=== PATIENT | female | born 1955 | race Caucasian/White ===

== ENCOUNTER 2017-05-25 18:07 | Inpatient (IN) | payer MEDICAID ==
[~2017-05-25] VITALS: Ht 160 cm; Wt 118.4 kg
[~2017-05-25 18:07] MED LIST: ASPI-1009 PO; CLOP75TA35 PO; FURO40TA4 PO; IMD30T PO; MARIJAUNA; NICO-62 TD; NITR0.4T51 SL; NOR5T PO; POTA8CAP9 PO; SIMV10TA2 PO
[2017-05-25 18:53] LABS: BASOPHILS # (AUTO) 0.1 X10'3 (0-0.2); BASOPHILS % (AUTO) 0.6 % (0-1); EOSINOPHILS # (AUTO) 0.2 X10'3 (0-0.9); EOSINOPHILS % (AUTO) 1.9 % (0-6); HEMATOCRIT 42.1 % (35.0-45.0); HEMOGLOBIN 14.1 g/dl (12.0-16.0); LYMPHOCYTES # (AUTO) 4.4 X10'3 (1.1-4.8); LYMPHOCYTES % (AUTO) 47.6 % (21-51); MEAN CORPUSCULAR HEMOGLOBIN 26.5 PG (27.0-31.0); MEAN CORPUSCULAR HGB CONC 33.6 % (33.0-36.5); MEAN CORPUSCULAR VOLUME 78.8 FL (78-98); MEAN PLATELET VOLUME 8.5 FL (7.4-10.4); MONOCYTES # (AUTO) 0.7 X10'3 (0-0.9); MONOCYTES % (AUTO) 7.7 % (2-12); NEUTROPHILS # (AUTO) 3.9 X10'3 (1.8-7.7); NEUTROPHILS % (AUTO) 42.2 % (42-75); PLATELET COUNT 290 X10'3 (140-440); RED BLOOD COUNT 5.34 X10'6 (4.20-5.60); RED CELL DISTRIBUTION WIDTH 15.1 % (11.5-14.5); WHITE BLOOD COUNT 9.2 X10'3 (4.5-11.0)
[2017-05-25 19:02] LABS: PARTIAL THROMBOPLASTIN TIME 26 SECONDS (22-32); PROTHROMBIN TIME 10.7 SECONDS (9.0-12.0)
[2017-05-25] MEDS ORDERED: albuterol 2.5 MG/3 ML nebule NEB ONE (19:05)
[2017-05-25 19:07] LABS: ALANINE AMINOTRANSFERASE 42 U/L (12-78); ALBUMIN 3.8 G/DL (3.4-5.0); ALBUMIN/GLOBULIN RATIO 0.8 (1.1-1.5); ALKALINE PHOSPHATASE 65 IU/L (46-116); ANION GAP 11 (8-16); ASPARTATE AMINO TRANSFERASE 31 U/L (10-37); BILIRUBIN,TOTAL 0.4 MG/DL (0.1-1.0); BLOOD UREA NITROGEN 23 MG/DL (7-18); BUN/CREATININE RATIO 16.3 (6.6-38.0); CALCIUM 9.3 MG/DL (8.5-10.1); CHLORIDE 110 MMOL/L (99-107); CREATININE 1.41 MG/DL (0.40-0.90); GLUCOSE 115 MG/DL (70-104); POTASSIUM 4.5 MMOL/L (3.5-5.1); SODIUM 146 MMOL/L (135-145); TOTAL CARBON DIOXIDE 25.4 MMOL/L (24-32); TOTAL PROTEIN 8.7 G/DL (6.4-8.2); eGFR 38 ML/MIN
[2017-05-25 19:29] LABS: URINE AMPHETAMINE SCREEN POSITIVE (Neg); URINE BARBITUATE SCREEN NEGATIVE (Neg); URINE BENZODIAZEPINES SCREEN NEGATIVE (Neg); URINE CANNABINOID SCREEN POSITIVE (Neg); URINE COCAINE SCREEN NEGATIVE (Neg); URINE METHADONE SCREEN NEGATIVE (Neg); URINE OPIATE SCREEN NEGATIVE (Neg); URINE PHENCYCLIDINE SCREEN NEGATIVE (Neg)
[2017-05-25 20:00] LABS: D-DIMER 0.68 MG/L FEU (0-0.50)
[2017-05-25] MEDS ORDERED: normal saline 1000ml 1,000 ML IV SCH (21:47)
[2017-05-25] MEDS ORDERED: magnesium Cl slow-release 64mg tablet PO PRN (21:50)
[2017-05-25] MEDS ORDERED: magnesium 2GM in 50ml NS 50 ML IV PRN (21:50)
[2017-05-25] MEDS ORDERED: potassium Cl 20 mEq SR tablet PO PRN ×2 (21:50)
[2017-05-25] MEDS ORDERED: ondansetron/PF 4mg/2ml inj IV PRN (21:50)
[2017-05-25] MEDS ORDERED: heparin 10,000 units/1 ML INJ IV ONE (21:50)
[2017-05-25] MEDS ORDERED: magnesium 4gm in 100ml NS 100 ML IV PRN (21:50)
[2017-05-25] MEDS ORDERED: potassium Cl 40MEQ/NS 500ml 500 ML IV PRN ×2 (21:50)
[2017-05-25] MEDS ORDERED: heparin 10,000 units/1 ML INJ IV PRN (21:50)
[2017-05-25] MEDS ORDERED: magnesium hydroxide 30ml (MOM) UD suspension PO PRN (21:50)
[2017-05-25] MEDS ORDERED: mag hydrox/Alum hydrox/simeth 30ml oral suspension PO PRN (21:50)
[2017-05-25] MEDS ORDERED: acetaminophen 325mg tablet PO PRN (21:50)
[2017-05-25] MEDS ORDERED: furosemide 10 MG/1 ML 10ml inj IV ONE (21:55)
[2017-05-25] MEDS ORDERED: PROP20TA6 PO (22:04)
[2017-05-25] MEDS ORDERED: PANT20TA3 PO (22:04)
[2017-05-25] MEDS ORDERED: [UNRECOGNIZED DRUG - CODE] PO (22:04)
[2017-05-25] MEDS ORDERED: ACIT25CA2 PO (22:04)
[2017-05-25] MEDS ORDERED: ALBU18HF2 INH (22:04)
[2017-05-25] MEDS ORDERED: ATEN50TA23 PO (22:04)
[2017-05-25 22:45] VITALS: BP 122/58
[2017-05-26] VITALS (7 sets, daily range): BP systolic 100–156; BP diastolic 57–78
[2017-05-26 00:58] LABS: ALBUMIN 3.6 G/DL (3.4-5.0); ANION GAP 12 (8-16); BLOOD UREA NITROGEN 22 MG/DL (7-18); BUN/CREATININE RATIO 15.9 (6.6-38.0); CALCIUM 9.3 MG/DL (8.5-10.1); CHLORIDE 108 MMOL/L (99-107); CHOL/HDL RATIO 5.2 (0.00-4.99); CHOLESTEROL 120 MG/DL (0-200); CREATININE 1.38 MG/DL (0.40-0.90); GLUCOSE 122 MG/DL (70-104); HDL CHOLESTEROL 23 MG/DL (35-60); LDL CHOLESTEROL 79 MG/DL (50-100); MAGNESIUM 1.9 MG/DL (1.5-2.4); POTASSIUM 3.9 MMOL/L (3.5-5.1); SODIUM 146 MMOL/L (135-145); TOTAL CARBON DIOXIDE 25.6 MMOL/L (24-32); TRIGLYCERIDES 125 MG/DL (20-135); eGFR 39 ML/MIN
[2017-05-26 05:03] LABS: BASOPHILS # (AUTO) 0.1 X10'3 (0-0.2); BASOPHILS % (AUTO) 0.6 % (0-1); EOSINOPHILS # (AUTO) 0.2 X10'3 (0-0.9); EOSINOPHILS % (AUTO) 2.4 % (0-6); HEMATOCRIT 40.5 % (35.0-45.0); HEMOGLOBIN 13.6 g/dl (12.0-16.0); LYMPHOCYTES # (AUTO) 4.4 X10'3 (1.1-4.8); LYMPHOCYTES % (AUTO) 48.9 % (21-51); MEAN CORPUSCULAR HEMOGLOBIN 26.4 PG (27.0-31.0); MEAN CORPUSCULAR HGB CONC 33.6 % (33.0-36.5); MEAN CORPUSCULAR VOLUME 78.4 FL (78-98); MONOCYTES # (AUTO) 0.8 X10'3 (0-0.9); MONOCYTES % (AUTO) 8.9 % (2-12); NEUTROPHILS # (AUTO) 3.6 X10'3 (1.8-7.7); NEUTROPHILS % (AUTO) 39.2 % (42-75); PLATELET COUNT 258 X10'3 (140-440); RED BLOOD COUNT 5.17 X10'6 (4.20-5.60); RED CELL DISTRIBUTION WIDTH 15.2 % (11.5-14.5); WHITE BLOOD COUNT 9.1 X10'3 (4.5-11.0)
[2017-05-26 05:56] LABS: ALBUMIN 3.6 G/DL (3.4-5.0); ANION GAP 11 (8-16); BLOOD UREA NITROGEN 23 MG/DL (7-18); BUN/CREATININE RATIO 17.6 (6.6-38.0); CALCIUM 8.9 MG/DL (8.5-10.1); CHLORIDE 107 MMOL/L (99-107); CREATININE 1.31 MG/DL (0.40-0.90); MAGNESIUM 1.9 MG/DL (1.5-2.4); SODIUM 144 MMOL/L (135-145); TOTAL CARBON DIOXIDE 25.8 MMOL/L (24-32); eGFR 42 ML/MIN
[2017-05-26 05:57] LABS: GLUCOSE 119 MG/DL (70-104)
[2017-05-26] MEDS: K and/or MAG REPLACEMENT MC SCH (08:00)
[2017-05-26] MEDS: clopidogrel 75mg tablet PO SCH (08:04)
[2017-05-26] MEDS: furosemide 40mg tablet PO SCH (08:04)
[2017-05-26] MEDS: aspirin 81mg tablet.DR PO SCH (08:05)
[2017-05-26] MEDS: isosorbide mononitrate 30mg tab.SR.24H PO SCH (08:05)
[2017-05-26] MEDS: potassium chloride 8mEq ER tablet PO SCH (08:05)
[2017-05-26] MEDS: heparin, porcine 5000 units/ml vial SQ SCH (20:48)
[2017-05-26] MEDS ORDERED: atorvastatin 10mg tablet PO SCH (21:00)
[2017-05-26] MEDS ORDERED: amLODIPine 5mg tablet PO SCH (21:00)
[2017-05-27 02:00] VITALS: BP 116/61
[2017-05-27 05:22] LABS: BASOPHILS % (AUTO) 0.5 % (0-1); EOSINOPHILS # (AUTO) 0.2 X10'3 (0-0.9); EOSINOPHILS % (AUTO) 2.5 % (0-6); HEMATOCRIT 41.1 % (35.0-45.0); HEMOGLOBIN 13.6 g/dl (12.0-16.0); LYMPHOCYTES # (AUTO) 4.4 X10'3 (1.1-4.8); LYMPHOCYTES % (AUTO) 52.3 % (21-51); MEAN CORPUSCULAR HEMOGLOBIN 26.3 PG (27.0-31.0); MEAN CORPUSCULAR HGB CONC 33.2 % (33.0-36.5); MEAN CORPUSCULAR VOLUME 79.3 FL (78-98); MONOCYTES # (AUTO) 0.8 X10'3 (0-0.9); MONOCYTES % (AUTO) 9.6 % (2-12); NEUTROPHILS % (AUTO) 35.1 % (42-75); PLATELET COUNT 250 X10'3 (140-440); RED BLOOD COUNT 5.18 X10'6 (4.20-5.60); RED CELL DISTRIBUTION WIDTH 14.9 % (11.5-14.5); WHITE BLOOD COUNT 8.4 X10'3 (4.5-11.0)
[2017-05-27 05:28] LABS: ALBUMIN 3.5 G/DL (3.4-5.0); ANION GAP 10 (8-16); BLOOD UREA NITROGEN 24 MG/DL (7-18); BUN/CREATININE RATIO 21.6 (6.6-38.0); CALCIUM 9.4 MG/DL (8.5-10.1); CHLORIDE 105 MMOL/L (99-107); CREATININE 1.11 MG/DL (0.40-0.90); GLUCOSE 113 MG/DL (70-104); POTASSIUM 3.9 MMOL/L (3.5-5.1); SODIUM 142 MMOL/L (135-145); TOTAL CARBON DIOXIDE 27.4 MMOL/L (24-32); eGFR 50 ML/MIN
[2017-05-27 06:00] VITALS: BP 166/90
[2017-05-27] MEDS: K and/or MAG REPLACEMENT MC SCH (06:50)
[2017-05-27] MEDS: aspirin 81mg tablet.DR PO SCH (07:35)
[2017-05-27] MEDS: furosemide 40mg tablet PO SCH (07:35)
[2017-05-27] MEDS: potassium chloride 8mEq ER tablet PO SCH (07:35)
[2017-05-27] MEDS: isosorbide mononitrate 30mg tab.SR.24H PO SCH (07:35)
[2017-05-27] MEDS: heparin, porcine 5000 units/ml vial SQ SCH (07:36)
[2017-05-27] MEDS: clopidogrel 75mg tablet PO SCH (07:39)
[2017-05-27 11:00] VITALS: BP 121/55
== END 2017-05-27 12:10 | disposition home or self-care (01) | DRG 194 ==
LOC: ER 18:09 → ED HOLD 21:47 → PCU 3S 22:40
PROVIDERS: ADMIT Internal Medicine; ATTEND Internal Medicine
PROC: CB221ZZ Tomographic (Tomo) Nuclear Medicine Imaging of Lungs and Bronchi using Technetium 99m (Tc-99m) (ICD-10-PCS; principal; 2017-05-26)
DX: I11.0 Hypertensive heart disease with heart failure (principal); N17.9 Acute kidney failure, unspecified; C95.90 Leukemia, unspecified not having achieved remission; Z68.42 Body mass index [BMI] 45.0-49.9, adult; E66.01 Morbid (severe) obesity due to excess calories; I50.9 Heart failure, unspecified; E78.00 Pure hypercholesterolemia, unspecified; E78.5 Hyperlipidemia, unspecified; F12.10 Cannabis abuse, uncomplicated; F15.10 Other stimulant abuse, uncomplicated; F17.200 Nicotine dependence, unspecified, uncomplicated; I25.10 Atherosclerotic heart disease of native coronary artery without angina pectoris; J44.9 Chronic obstructive pulmonary disease, unspecified; K21.9 Gastro-esophageal reflux disease without esophagitis; B19.20 Unspecified viral hepatitis C without hepatic coma; F32.9 Major depressive disorder, single episode, unspecified; F41.9 Anxiety disorder, unspecified; G89.29 Other chronic pain; M19.90 Unspecified osteoarthritis, unspecified site; R09.02 Hypoxemia; R79.1 Abnormal coagulation profile; Z74.01 Bed confinement status; Z79.02 Long term (current) use of antithrombotics/antiplatelets; Z82.49 Family history of ischemic heart disease and other diseases of the circulatory system; Z83.3 Family history of diabetes mellitus; Z87.11 Personal history of peptic ulcer disease; Z90.710 Acquired absence of both cervix and uterus; Z95.5 Presence of coronary angioplasty implant and graft; Z88.5 Allergy status to narcotic agent
CPT/HCPCS: 36415; 71045; 78582; 80048; 80053; 80061; 80305; 83036; 83605; 83735; 83880; 84484; 85025; 85379; 85610; 85730; 87040; 87070; 93005; 93306; 94640; 94760; A9539; A9540; J1644; J1940; J7030

== ENCOUNTER 2018-03-22 02:35 | Inpatient (IN) | payer MEDICAID | END 2018-03-29 17:41 | disposition home or self-care (01) | LOC: ER 02:35 → SUR 3N 03-29 10:14 → ED HOLD 05:07 → SUR 3N 09:40 ==

== ENCOUNTER 2018-12-12 18:37 | Inpatient (IN) | payer MEDICAID ==
[~2018-12-12] VITALS: Ht 165.1 cm; Wt 105.0 kg
[~2018-12-12 18:37] MED LIST changes: +ALBU18HF2 INH; +ALBU8.5H8 INH; +ATEN50TA23 PO; +BUDE10.22 INH; +CETI-102 PO; +CIPR250T4 PO; +FAMO20TA8 PO; +FLUT16SP18 NS; +LACT1CAP26 PO; -MARIJAUNA; +MONT10TA24 PO; -NICO-62 TD; -NOR5T PO; +POTA8CAP20 PO; -POTA8CAP9 PO; +WOOL454C TP; +[UNRECOGNIZED DRUG - CODE] PO
[2018-12-12] MEDS ORDERED: levoFLOXACIN-Levaquin 750MG/D5 150 ML IV STA (19:02)
[2018-12-12] MEDS ORDERED: normal saline 1000ML IV soln IVB ONE ×2 (19:05)
--- NOTE | 2018-12-12 19:05 | NUR ---
DR. RIVAS WAS ADVISED OF PATIENT'S POTENTIAL SEPTIC STATUS BASED TACHYCARDIAN,HYPTOTENSION, FEBRILE, GREEN SPUTUM. EVELYN ALSO IS AWARE OF PATIETN HISTORY OF CHF, BUT EVELYN ADVISED BECAUSE OF PATIENT'S VITALS, SHE STILL NEEDS SOME FLUIDS. 2 LITERS ORDERED.
[2018-12-12 19:07] LABS: BASOPHILS # (AUTO) 0.1 X10'3 (0-0.2); BASOPHILS % (AUTO) 0.3 % (0-1); EOSINOPHILS % (AUTO) 0 % (0-6); HEMATOCRIT 43.4 % (35.0-45.0); HEMOGLOBIN 14.3 g/dl (12.0-16.0); LYMPHOCYTES # (AUTO) 2.8 X10'3 (1.1-4.8); LYMPHOCYTES % (AUTO) 13.4 % (21-51); MEAN CORPUSCULAR HEMOGLOBIN 26.2 PG (27.0-31.0); MEAN CORPUSCULAR HGB CONC 33.1 g/dL (33.0-36.5); MEAN CORPUSCULAR VOLUME 79.2 FL (78-98); MEAN PLATELET VOLUME 8.5 FL (7.4-10.4); MONOCYTES # (AUTO) 1.9 X10'3 (0-0.9); MONOCYTES % (AUTO) 8.9 % (2-12); NEUTROPHILS # (AUTO) 16.3 X10'3 (1.8-7.7); NEUTROPHILS % (AUTO) 77.4 % (42-75); PLATELET COUNT 212 X10'3 (140-440); RED BLOOD COUNT 5.47 X10'6 (4.20-5.60); RED CELL DISTRIBUTION WIDTH 14.4 % (11.5-14.5)
[2018-12-12 19:22] LABS: ALANINE AMINOTRANSFERASE 20 U/L (12-78); ALBUMIN 3.2 G/DL (3.4-5.0); ALBUMIN/GLOBULIN RATIO 0.6 (1.1-1.5); ALKALINE PHOSPHATASE 77 IU/L (46-116); ANION GAP 9 (8-16); ASPARTATE AMINO TRANSFERASE 19 U/L (10-37); BILIRUBIN,TOTAL 0.9 MG/DL (0.1-1.0); BLOOD UREA NITROGEN 12 MG/DL (7-18); BUN/CREATININE RATIO 8.5 (6.6-38.0); CALCIUM 8.9 MG/DL (8.5-10.1); CHLORIDE 101 MMOL/L (99-107); CREATININE 1.42 MG/DL (0.40-0.90); GLUCOSE 126 MG/DL (70-104); POTASSIUM 3.6 MMOL/L (3.5-5.1); SODIUM 135 MMOL/L (135-145); TOTAL CARBON DIOXIDE 25.2 MMOL/L (24-32); TOTAL PROTEIN 8.5 G/DL (6.4-8.2); eGFR 38 ML/MIN
[2018-12-12 19:23] LABS: PARTIAL THROMBOPLASTIN TIME 31 SECONDS (22-32)
[2018-12-12] MEDS ORDERED: azithromycin/NS 500mg/250ml 250 ML IV ONE (21:00)
[2018-12-12] MEDS ORDERED: CefTRIAXone 2gm/D5W 50ml 50 ML IV ONE (21:00)
[2018-12-12] MEDS ORDERED: furosemide 10 MG/1 ML 10ml inj IV ONE (21:10)
[2018-12-12] MEDS ORDERED: methylPREDNISolone sod succ 125mg/2ml vial IV ONE (21:10)
--- NOTE | 2018-12-12 22:19 | NUR ---
PT AMBULATED FROM BAIN BED TO BATHROOM. PT INCONTINENT UPON REACHING BATHROOM. PT BACK TO BED AND TACHY IN 120, SPO2 AT 95%. PT RESTING COMFORTABLY
--- NOTE | 2018-12-12 22:28 | NUR ---
PT AGAIN AMBULATED TO BATHROOM FROM BAIN BED. PT ABLE TO CONTROL URINATION. PT BACK IN BED, VS MONITORS ON, PT RESTING COMFORTABLY
[2018-12-12] MEDS ORDERED: magnesium 4gm in 100ml NS 100 ML IV PRN (23:15)
[2018-12-12] MEDS ORDERED: acetaminophen 325mg tablet PO PRN ×2 (23:15)
[2018-12-12] MEDS ORDERED: mag hydrox/Alum hydrox/simeth 30ml oral suspension PO PRN (23:15)
[2018-12-12] MEDS ORDERED: potassium Cl 20 mEq SR tablet PO PRN ×2 (23:15)
[2018-12-12] MEDS ORDERED: magnesium Cl slow-release 64mg tablet PO PRN (23:15)
[2018-12-12] MEDS ORDERED: potassium CL 10mEq/100ml bag 100 ML IV PRN ×2 (23:15)
[2018-12-12] MEDS ORDERED: magnesium 2GM in 50ml NS 50 ML IV PRN (23:15)
[2018-12-12] MEDS ORDERED: magnesium hydroxide 30ml (MOM) UD suspension PO PRN (23:15)
[2018-12-12 23:55] LABS: CLARITY,URINE CLEAR (Clear); COLOR,URINE YELLOW (Yellow); GLUCOSE, URINE NEGATIVE (Neg); KETONES,URINE NEGATIVE (Neg); LEUKOCYTE ESTERASE ,URINE NEGATIVE (Neg); NITRITES, URINE NEGATIVE (Neg); OCCULT BLOOD,URINE TRACE-LYSED (Neg); PROTEIN,URINE NEGATIVE (Neg); UROBILINOGEN,URINE 0.2 E.U/dL (0.2-1.0)
[2018-12-13 00:01] LABS: UA COLLECTION TYPE CLN CATCH MIDSTREAM
[2018-12-13 00:15] LABS: BACTERIA,URINE 1+ /HPF (Neg); MUCUS STRANDS NONE SEEN /LPF (Neg); RBC,URINE 0-2 /HPF (0-2); SQUAMOUS EPITHELIAL CELL,UR NONE SEEN /LPF (FEW); WBC,URINE 0-4 /HPF (0-4)
[2018-12-13] MEDS ORDERED: ipratropium/albuterol 3ml nebule NEB PRN (01:35)
--- NOTE | 2018-12-13 02:52 | NUR ---
Patient in room ED 8. I have received report from ANDREA Campoverde and had the opportunity to ask questions and assume patient care.
[2018-12-13 03:00] VITALS: BP 105/67
--- NOTE | 2018-12-13 04:59 | NUR ---
patient arrived in the floor at 0250, a/o x4. pt was very sleepy and not able to do admission assessment.
[2018-12-13 05:20] LABS: BASOPHILS % (AUTO) 0.1 % (0-1); EOSINOPHILS % (AUTO) 0 % (0-6); HEMATOCRIT 44.6 % (35.0-45.0); HEMOGLOBIN 14.5 g/dl (12.0-16.0); LYMPHOCYTES # (AUTO) 1.9 X10'3 (1.1-4.8); MEAN CORPUSCULAR HEMOGLOBIN 26.1 PG (27.0-31.0); MEAN CORPUSCULAR HGB CONC 32.5 g/dL (33.0-36.5); MEAN CORPUSCULAR VOLUME 80.4 FL (78-98); MEAN PLATELET VOLUME 8.8 FL (7.4-10.4); MONOCYTES # (AUTO) 0.4 X10'3 (0-0.9); MONOCYTES % (AUTO) 2.8 % (2-12); NEUTROPHILS # (AUTO) 13.2 X10'3 (1.8-7.7); NEUTROPHILS % (AUTO) 85.1 % (42-75); PLATELET COUNT 183 X10'3 (140-440); RED BLOOD COUNT 5.55 X10'6 (4.20-5.60); RED CELL DISTRIBUTION WIDTH 14.7 % (11.5-14.5); WHITE BLOOD COUNT 15.5 X10'3 (4.5-11.0)
[2018-12-13 05:32] LABS: ANION GAP 9 (8-16); BLOOD UREA NITROGEN 17 MG/DL (7-18); BUN/CREATININE RATIO 13.9 (6.6-38.0); CALCIUM 8.8 MG/DL (8.5-10.1); CHLORIDE 103 MMOL/L (99-107); CREATININE 1.22 MG/DL (0.40-0.90); GLUCOSE 137 MG/DL (70-104); MAGNESIUM 1.9 MG/DL (1.5-2.4); POTASSIUM 3.6 MMOL/L (3.5-5.1); SODIUM 138 MMOL/L (135-145); TOTAL CARBON DIOXIDE 26.2 MMOL/L (24-32); eGFR 45 ML/MIN
--- NOTE | 2018-12-13 06:38 | NUR ---
Problems reprioritized. Patient report given, questions answered & plan of care reviewed with ANDREA Olguin. Addendum: 12/13/18 at 0639 by Alberta Sky RN Amended: Links added.
--- NOTE | 2018-12-13 06:41 | NUR ---
Patient in room [facility] 357. I have received report from AMINATA Singleton RN and had the opportunity to ask questions and assume patient care.
[2018-12-13 07:00] VITALS: BP 131/81
[2018-12-13] MEDS: mineral oil/petrolatum, white cream 113gm jar TP SCH ×2 (08:00→20:58)
[2018-12-13] MEDS: K and/or MAG REPLACEMENT MC SCH (08:00)
[2018-12-13] MEDS ORDERED: budesonide 0.5mg/2ml UD nebule IH SCH (08:00)
[2018-12-13] MEDS: ipratropium/albuterol 3ml nebule NEB SCH ×3 (08:28→20:00)
[2018-12-13] MEDS: budesonide 0.5mg/2ml UD nebule IH SCH ×2 (08:28→20:00)
[2018-12-13] MEDS: furosemide 10 MG/1 ML 10ml inj IV SCH ×2 (09:29→20:57)
[2018-12-13] MEDS: CefTRIAXone 2gm/D5W 50ml 50 ML IV SCH (09:37)
[2018-12-13] MEDS: potassium chloride 8mEq ER tablet PO SCH (09:48)
[2018-12-13] MEDS: aspirin 81mg tablet.DR PO SCH (09:48)
[2018-12-13] MEDS: azithromycin 250mg tablet PO SCH (09:48)
[2018-12-13] MEDS: clopidogrel 75mg tablet PO SCH (09:48)
[2018-12-13] MEDS: isosorbide mononitrate 30mg tab.SR.24H PO SCH (09:48)
[2018-12-13] MEDS: atenolol 50mg tablet PO SCH (09:49)
[2018-12-13] MEDS: montelukast 10mg tablet PO SCH (09:49)
[2018-12-13] MEDS: enoxaparin 40mg/0.4ml syringe SQ SCH (09:51)
[2018-12-13 10:30] VITALS: BP 117/74
--- NOTE | 2018-12-13 11:38 | NUR ---
I have reviewed and agree with all medications administered and interventions performed by FREIGHT ADJUSTER Student Jesse Pride.
[2018-12-13 12:06] VITALS: BP 100/45
[2018-12-13 18:00] VITALS: BP 113/56
--- NOTE | 2018-12-13 18:49 | NUR ---
Patient in room [facility] 357. I have received report from ANDREA Reynolds and had the opportunity to ask questions and assume patient care. Addendum: 12/13/18 at 1849 by Alberta Sky RN Amended: Links added.
[2018-12-13 20:44] LABS: HEMOGLOBIN A1C 5.5 % (4.5-6.2)
[2018-12-13] MEDS: lactobacillus rhamnosus 10,000 MMU CELLS/CAPSULE PO SCH (20:58)
[2018-12-13] MEDS: atorvastatin 10mg tablet PO SCH (20:58)
[2018-12-13] MEDS: famotidine 20mg tablet PO SCH (20:58)
[2018-12-14] VITALS: BP 107/70
[2018-12-14] MEDS: guaiFENesin 200 MG/10 ML oral syrup UD cup PO PRN ×2 (04:20→15:50)
[2018-12-14 05:26] LABS: BASOPHILS % (AUTO) 0.2 % (0-1); EOSINOPHILS % (AUTO) 0.1 % (0-6); HEMATOCRIT 43.2 % (35.0-45.0); HEMOGLOBIN 13.9 g/dl (12.0-16.0); LYMPHOCYTES # (AUTO) 2.8 X10'3 (1.1-4.8); LYMPHOCYTES % (AUTO) 18.9 % (21-51); MEAN CORPUSCULAR HEMOGLOBIN 25.9 PG (27.0-31.0); MEAN CORPUSCULAR HGB CONC 32.1 g/dL (33.0-36.5); MEAN CORPUSCULAR VOLUME 80.5 FL (78-98); MEAN PLATELET VOLUME 9.1 FL (7.4-10.4); MONOCYTES # (AUTO) 0.9 X10'3 (0-0.9); MONOCYTES % (AUTO) 6.2 % (2-12); NEUTROPHILS # (AUTO) 11.2 X10'3 (1.8-7.7); NEUTROPHILS % (AUTO) 74.6 % (42-75); PLATELET COUNT 229 X10'3 (140-440); RED BLOOD COUNT 5.36 X10'6 (4.20-5.60); RED CELL DISTRIBUTION WIDTH 14.6 % (11.5-14.5)
[2018-12-14 06:04] LABS: ALBUMIN 2.8 G/DL (3.4-5.0); ANION GAP 11 (8-16); BLOOD UREA NITROGEN 44 MG/DL (7-18); BUN/CREATININE RATIO 34.1 (6.6-38.0); CALCIUM 8.4 MG/DL (8.5-10.1); CHLORIDE 105 MMOL/L (99-107); CREATININE 1.29 MG/DL (0.40-0.90); GLUCOSE 125 MG/DL (70-104); POTASSIUM 3.6 MMOL/L (3.5-5.1); SODIUM 141 MMOL/L (135-145); eGFR 42 ML/MIN
--- NOTE | 2018-12-14 06:26 | NUR ---
Patient in room [facility] 357. I have received report from ROBERTH Singleton RN and had the opportunity to ask questions and assume patient care.
--- NOTE | 2018-12-14 06:45 | NUR ---
Problems reprioritized. Patient report given, questions answered & plan of care reviewed with ANDREA Stockton.
[2018-12-14 07:00] VITALS: BP 129/72
[2018-12-14] MEDS: budesonide 0.5mg/2ml UD nebule IH SCH ×2 (07:26→21:21)
[2018-12-14] MEDS: ipratropium/albuterol 3ml nebule NEB SCH ×3 (07:26→21:21)
[2018-12-14] MEDS: K and/or MAG REPLACEMENT MC SCH (08:00)
[2018-12-14] MEDS: enoxaparin 40mg/0.4ml syringe SQ SCH (08:00)
[2018-12-14] MEDS: isosorbide mononitrate 30mg tab.SR.24H PO SCH (08:03)
[2018-12-14] MEDS: furosemide 10 MG/1 ML 10ml inj IV SCH (08:03)
[2018-12-14] MEDS: potassium chloride 8mEq ER tablet PO SCH (08:04)
[2018-12-14] MEDS: montelukast 10mg tablet PO SCH (08:04)
[2018-12-14] MEDS: aspirin 81mg tablet.DR PO SCH (08:04)
[2018-12-14] MEDS: lactobacillus rhamnosus 10,000 MMU CELLS/CAPSULE PO SCH ×2 (08:04→20:49)
[2018-12-14] MEDS: clopidogrel 75mg tablet PO SCH (08:04)
[2018-12-14] MEDS: azithromycin 250mg tablet PO SCH (08:05)
[2018-12-14] MEDS: atenolol 50mg tablet PO SCH (08:05)
[2018-12-14] MEDS: mineral oil/petrolatum, white cream 113gm jar TP SCH ×2 (08:06→20:50)
[2018-12-14] MEDS: CefTRIAXone 2gm/D5W 50ml 50 ML IV SCH (08:06)
[2018-12-14 11:00] VITALS: BP 126/47
--- NOTE | 2018-12-14 11:31 | NUR ---
Nutrition consult: Pt currently on heart healthy diet documented with 75-100% PO intake likely meeting nutrient needs. Pt with hx borderline DM, A1c 5.5 not warranting DM education at this time. No edema or wounds. LBM 12/13. No nutrition concerns at this time. Will continue to follow. Addendum: 12/14/18 at [address] Amended: Links added.
[2018-12-14] MEDS: furosemide 20MG tablet PO SCH (15:50)
[2018-12-14 18:00] VITALS: BP 114/66
--- NOTE | 2018-12-14 18:53 | NUR ---
Patient in room [facility] 357. I have received report from ANDREA Stockton and had the opportunity to ask questions and assume patient care. Addendum: 12/14/18 at 1853 by Alberta Sky RN Amended: Links added.
--- NOTE | 2018-12-14 19:07 | NUR ---
patient tearful at times with regards the passing of her two weeks ago. Time spent with patient, seen by DR Siu. Appears stable at this time.Report given to Ana Singleton
[2018-12-14] MEDS: atorvastatin 10mg tablet PO SCH (20:49)
[2018-12-14] MEDS: famotidine 20mg tablet PO SCH (20:49)
[2018-12-15] VITALS: BP 119/67
[2018-12-15] MEDS: guaiFENesin 200 MG/10 ML oral syrup UD cup PO PRN ×2 (00:27→13:38)
[2018-12-15 05:23] LABS: BASOPHILS % (AUTO) 0.4 % (0-1); EOSINOPHILS # (AUTO) 0.1 X10'3 (0-0.9); EOSINOPHILS % (AUTO) 0.7 % (0-6); HEMATOCRIT 42.5 % (35.0-45.0); HEMOGLOBIN 14.1 g/dl (12.0-16.0); LYMPHOCYTES # (AUTO) 2.7 X10'3 (1.1-4.8); LYMPHOCYTES % (AUTO) 26.4 % (21-51); MEAN CORPUSCULAR HEMOGLOBIN 26.4 PG (27.0-31.0); MEAN CORPUSCULAR HGB CONC 33.2 g/dL (33.0-36.5); MEAN CORPUSCULAR VOLUME 79.7 FL (78-98); MEAN PLATELET VOLUME 8.9 FL (7.4-10.4); MONOCYTES # (AUTO) 0.9 X10'3 (0-0.9); MONOCYTES % (AUTO) 9.1 % (2-12); NEUTROPHILS # (AUTO) 6.5 X10'3 (1.8-7.7); NEUTROPHILS % (AUTO) 63.4 % (42-75); PLATELET COUNT 237 X10'3 (140-440); RED BLOOD COUNT 5.34 X10'6 (4.20-5.60); RED CELL DISTRIBUTION WIDTH 14.7 % (11.5-14.5); WHITE BLOOD COUNT 10.3 X10'3 (4.5-11.0)
[2018-12-15 05:46] LABS: ALBUMIN 2.9 G/DL (3.4-5.0); ANION GAP 9 (8-16); BLOOD UREA NITROGEN 30 MG/DL (7-18); CALCIUM 8.5 MG/DL (8.5-10.1); CHLORIDE 106 MMOL/L (99-107); CREATININE 0.91 MG/DL (0.40-0.90); GLUCOSE 103 MG/DL (70-104); MAGNESIUM 1.9 MG/DL (1.5-2.4); SODIUM 142 MMOL/L (135-145); TOTAL CARBON DIOXIDE 27.5 MMOL/L (24-32); eGFR 63 ML/MIN
--- NOTE | 2018-12-15 06:13 | NUR ---
Problems reprioritized. Patient report given, questions answered & plan of care reviewed with ANDREA Stockton. Addendum: 12/15/18 at 0613 by Alberta Sky RN Amended: Links added.
--- NOTE | 2018-12-15 06:18 | NUR ---
Patient in room [facility] 357. I have received report from Akanksha MENDEZ and had the opportunity to ask questions and assume patient care.
--- NOTE | 2018-12-15 06:42 | NUR ---
Patient in room [facility] 357. I have received report from Ana Singleton RN and had the opportunity to ask questions and assume patient care.
[2018-12-15 08:00] VITALS: BP 142/71
[2018-12-15] MEDS: budesonide 0.5mg/2ml UD nebule IH SCH ×2 (08:00→20:54)
[2018-12-15] MEDS: K and/or MAG REPLACEMENT MC SCH (08:00)
[2018-12-15] MEDS: enoxaparin 40mg/0.4ml syringe SQ SCH (08:00)
[2018-12-15] MEDS: CefTRIAXone 2gm/D5W 50ml 50 ML IV SCH (08:22)
[2018-12-15] MEDS: azithromycin 250mg tablet PO SCH (08:27)
[2018-12-15] MEDS: isosorbide mononitrate 30mg tab.SR.24H PO SCH (08:27)
[2018-12-15] MEDS: aspirin 81mg tablet.DR PO SCH (08:27)
[2018-12-15] MEDS: montelukast 10mg tablet PO SCH (08:27)
[2018-12-15] MEDS: potassium chloride 8mEq ER tablet PO SCH (08:27)
[2018-12-15] MEDS: clopidogrel 75mg tablet PO SCH (08:30)
[2018-12-15] MEDS: lactobacillus rhamnosus 10,000 MMU CELLS/CAPSULE PO SCH ×2 (08:30→20:35)
[2018-12-15] MEDS: atenolol 50mg tablet PO SCH (08:30)
[2018-12-15] MEDS: furosemide 20MG tablet PO SCH (08:30)
[2018-12-15] MEDS: ipratropium/albuterol 3ml nebule NEB SCH ×3 (09:00→20:54)
[2018-12-15 11:00] VITALS: BP 148/68
[2018-12-15] MEDS ORDERED: methylPREDNISolone sod succ 125mg/2ml vial IV ONE (12:50)
[2018-12-15] MEDS: mineral oil/petrolatum, white cream 113gm jar TP SCH ×2 (13:40→20:41)
[2018-12-15 18:00] VITALS: BP 133/71
--- NOTE | 2018-12-15 18:42 | NUR ---
Problems reprioritized. Patient report given, questions answered & plan of care reviewed with Deon MENDEZ.
--- NOTE | 2018-12-15 18:57 | NUR ---
I have received report from Lisa RN,and ANDREA Stockton and had the opportunity to ask questions and assume patient care.
[2018-12-15] MEDS ORDERED: methylPREDNISolone sod succ/PF 40mg inj. IV ONE (20:00)
[2018-12-15] MEDS: atorvastatin 10mg tablet PO SCH (20:34)
[2018-12-15] MEDS: famotidine 20mg tablet PO SCH (20:35)
[2018-12-15] MEDS ORDERED: temazepam 15mg capsule PO PRN (21:00)
[2018-12-16] VITALS: BP 124/93
[2018-12-16 06:24] LABS: BASOPHILS % (AUTO) 0.1 % (0-1); EOSINOPHILS % (AUTO) 0 % (0-6); HEMATOCRIT 43.1 % (35.0-45.0); LYMPHOCYTES % (AUTO) 15.9 % (21-51); MEAN CORPUSCULAR HEMOGLOBIN 26.2 PG (27.0-31.0); MEAN CORPUSCULAR HGB CONC 32.4 g/dL (33.0-36.5); MEAN CORPUSCULAR VOLUME 80.7 FL (78-98); MONOCYTES # (AUTO) 0.6 X10'3 (0-0.9); MONOCYTES % (AUTO) 4.9 % (2-12); NEUTROPHILS # (AUTO) 9.9 X10'3 (1.8-7.7); NEUTROPHILS % (AUTO) 79.1 % (42-75); PLATELET COUNT 243 X10'3 (140-440); RED BLOOD COUNT 5.34 X10'6 (4.20-5.60); RED CELL DISTRIBUTION WIDTH 14.6 % (11.5-14.5); WHITE BLOOD COUNT 12.6 X10'3 (4.5-11.0)
[2018-12-16 06:28] LABS: ALBUMIN 2.9 G/DL (3.4-5.0); ANION GAP 9 (8-16); BLOOD UREA NITROGEN 23 MG/DL (7-18); BUN/CREATININE RATIO 27.4 (6.6-38.0); CHLORIDE 106 MMOL/L (99-107); CREATININE 0.84 MG/DL (0.40-0.90); GLUCOSE 132 MG/DL (70-104); MAGNESIUM 2.2 MG/DL (1.5-2.4); POTASSIUM 4.4 MMOL/L (3.5-5.1); SODIUM 141 MMOL/L (135-145); TOTAL CARBON DIOXIDE 26.2 MMOL/L (24-32); eGFR 69 ML/MIN
--- NOTE | 2018-12-16 06:37 | NUR ---
Problems reprioritized. Patient report given, questions answered & plan of care reviewed with ANDREA Botello.
[2018-12-16 07:30] VITALS: BP 145/88
[2018-12-16] MEDS: enoxaparin 40mg/0.4ml syringe SQ SCH (08:00)
[2018-12-16] MEDS: K and/or MAG REPLACEMENT MC SCH (08:00)
[2018-12-16] MEDS: ipratropium/albuterol 3ml nebule NEB SCH ×2 (08:00→15:51)
[2018-12-16] MEDS: mineral oil/petrolatum, white cream 113gm jar TP SCH (08:00)
[2018-12-16] MEDS: budesonide 0.5mg/2ml UD nebule IH SCH (08:00)
[2018-12-16] MEDS: aspirin 81mg tablet.DR PO SCH (09:36)
[2018-12-16] MEDS: furosemide 20MG tablet PO SCH (09:36)
[2018-12-16] MEDS: azithromycin 250mg tablet PO SCH (09:36)
[2018-12-16] MEDS: clopidogrel 75mg tablet PO SCH (09:36)
[2018-12-16] MEDS: montelukast 10mg tablet PO SCH (09:37)
[2018-12-16] MEDS: potassium chloride 8mEq ER tablet PO SCH (09:37)
[2018-12-16] MEDS: lactobacillus rhamnosus 10,000 MMU CELLS/CAPSULE PO SCH (09:37)
[2018-12-16] MEDS: isosorbide mononitrate 30mg tab.SR.24H PO SCH (09:37)
[2018-12-16] MEDS: atenolol 50mg tablet PO SCH (09:38)
[2018-12-16] MEDS: CefTRIAXone 2gm/D5W 50ml 50 ML IV SCH (09:39)
[2018-12-16 11:00] VITALS: BP 122/67
[2018-12-16] MEDS ORDERED: IPRA3AMP9 NEB (12:53)
[2018-12-16] MEDS ORDERED: AMOX-422 PO (12:53)
[2018-12-16] MEDS ORDERED: PRED10TA23 PO ×2 (12:55→13:08)
[2018-12-16] MEDS ORDERED: PANT20TA3 PO (12:56)
--- NOTE | 2018-12-16 13:08 | NUR ---
Spoke to MD about discharge- prednisone order altered, waiting on SS to visit pt. before DC.
--- NOTE | 2018-12-16 14:48 | NUR ---
Pt. still awaiting SS discussion, nebulizer being obtain by case management. pt. showered, clothes provided.
--- NOTE | 2018-12-16 15:43 | NUR ---
Spoke with case management- partnership ride has been arranged. P/u time is 530pm. Pt. is ready to go. Awaiting delivery of nebulizer.
== END 2018-12-16 16:40 | disposition home or self-care (01) | DRG 139 ==
LOC: ER 18:38 → ED HOLD 23:49 → SUR 3N 12-13 03:15
PROVIDERS: ADMIT Hospitalist; ATTEND Internal Medicine
DX: J18.9 Pneumonia, unspecified organism (principal); N17.9 Acute kidney failure, unspecified; J44.0 Chronic obstructive pulmonary disease with (acute) lower respiratory infection; I11.0 Hypertensive heart disease with heart failure; I50.9 Heart failure, unspecified; B18.2 Chronic viral hepatitis C; E78.00 Pure hypercholesterolemia, unspecified; E78.5 Hyperlipidemia, unspecified; F12.90 Cannabis use, unspecified, uncomplicated; F32.9 Major depressive disorder, single episode, unspecified; F41.9 Anxiety disorder, unspecified; G89.29 Other chronic pain; M19.90 Unspecified osteoarthritis, unspecified site; F23 Brief psychotic disorder; F17.210 Nicotine dependence, cigarettes, uncomplicated; I25.10 Atherosclerotic heart disease of native coronary artery without angina pectoris; J44.1 Chronic obstructive pulmonary disease with (acute) exacerbation; K21.9 Gastro-esophageal reflux disease without esophagitis; Z79.82 Long term (current) use of aspirin; Z79.899 Other long term (current) drug therapy; Z85.6 Personal history of leukemia; Z87.11 Personal history of peptic ulcer disease; Z90.710 Acquired absence of both cervix and uterus
CPT/HCPCS: 36415; 71045; 80048; 80053; 81001; 81003; 83036; 83605; 83735; 83880; 84145; 85025; 85610; 85730; 87040; 87081; 87088; 93005; 93306; 94640; 94760; 96365; 96375; 99285; G0378; J0696; J1650; J1940; J1956; J2920; J2930; J7626

== ENCOUNTER 2019-03-09 19:40 | Inpatient (IN) | payer MEDICAID ==
[~2019-03-09] VITALS: Ht 154.9 cm; Wt 106.9 kg
[~2019-03-09 19:40] MED LIST changes: -ALBU8.5H8 INH; -BUDE10.22 INH; -CETI-102 PO; -CIPR250T4 PO; -FAMO20TA8 PO; +IPRA3AMP9 NEB; -LACT1CAP26 PO; +PANT20TA3 PO; +PRED10TA23 PO; -[UNRECOGNIZED DRUG - CODE] PO
--- NOTE | 2019-03-09 20:15 | NUR ---
elodia rose, calling to talk with patient. pt provided phone.
[2019-03-09 20:28] LABS: BASOPHILS % (AUTO) 0.3 % (0-1); EOSINOPHILS % (AUTO) 0 % (0-6); HEMATOCRIT 46.5 % (35.0-45.0); HEMOGLOBIN 15.3 g/dl (12.0-16.0); LYMPHOCYTES # (AUTO) 2.9 X10'3 (1.1-4.8); LYMPHOCYTES % (AUTO) 18.2 % (21-51); MEAN CORPUSCULAR HEMOGLOBIN 25.7 PG (27.0-31.0); MEAN CORPUSCULAR HGB CONC 32.9 g/dL (33.0-36.5); MEAN CORPUSCULAR VOLUME 77.9 FL (78-98); MEAN PLATELET VOLUME 8.6 FL (7.4-10.4); MONOCYTES # (AUTO) 1.2 X10'3 (0-0.9); MONOCYTES % (AUTO) 7.6 % (2-12); NEUTROPHILS % (AUTO) 73.9 % (42-75); PLATELET COUNT 220 X10'3 (140-440); RED BLOOD COUNT 5.97 X10'6 (4.20-5.60); RED CELL DISTRIBUTION WIDTH 14.4 % (11.5-14.5); WHITE BLOOD COUNT 16.2 X10'3 (4.5-11.0)
[2019-03-09 20:40] LABS: ALANINE AMINOTRANSFERASE 31 U/L (12-78); ALBUMIN 3.7 G/DL (3.4-5.0); ALBUMIN/GLOBULIN RATIO 0.7 (1.1-1.5); ALKALINE PHOSPHATASE 85 IU/L (46-116); ANION GAP 9 (8-16); ASPARTATE AMINO TRANSFERASE 23 U/L (10-37); BLOOD UREA NITROGEN 11 MG/DL (7-18); BUN/CREATININE RATIO 12.5 (6.6-38.0); CALCIUM 8.9 MG/DL (8.5-10.1); CHLORIDE 99 MMOL/L (99-107); CREATININE 0.88 MG/DL (0.40-0.90); GLUCOSE 94 MG/DL (70-104); LIPASE 82 U/L (73-393); POTASSIUM 3.9 MMOL/L (3.5-5.1); SODIUM 135 MMOL/L (135-145); TOTAL CARBON DIOXIDE 26.9 MMOL/L (24-32); TOTAL PROTEIN 8.7 G/DL (6.4-8.2); eGFR 65 ML/MIN
[2019-03-09] MEDS ORDERED: ondansetron/PF 4mg/2ml inj IV ONE (21:50)
[2019-03-09] MEDS ORDERED: normal saline 1000ML IV soln IV ONE (21:50)
[2019-03-09 21:51] LABS: CLARITY,URINE CLEAR (Clear); COLOR,URINE YELLOW (Yellow); GLUCOSE, URINE NEGATIVE (Neg); KETONES,URINE NEGATIVE (Neg); LEUKOCYTE ESTERASE ,URINE NEGATIVE (Neg); NITRITES, URINE NEGATIVE (Neg); OCCULT BLOOD,URINE SMALL (Neg); PROTEIN,URINE NEGATIVE (Neg); UROBILINOGEN,URINE 0.2 E.U/dL (0.2-1.0)
[2019-03-09 21:56] LABS: UA COLLECTION TYPE CLN CATCH MIDSTREAM
[2019-03-09 21:58] LABS: BACTERIA,URINE NONE SEEN /HPF (Neg); WBC,URINE NONE SEEN /HPF (0-4)
[2019-03-09 21:59] LABS: MUCUS STRANDS FEW /LPF (Neg); SQUAMOUS EPITHELIAL CELL,UR NONE SEEN /LPF (FEW)
[2019-03-09] MEDS ORDERED: normal saline 1000ML IV soln IVB ONE (23:00)
--- NOTE | 2019-03-09 23:00 | NUR ---
FLU SWAB OBTAINED, PATIENT COMPLAINED ABOUT HER FEET HURTING, SO I REMOVED HER SOCKS WHICH WERE STUCK TO HER FEET WITH SOME SEROUS FLUID LEFT LOWER LEG REDDENED AND MORE SWOLLEN THAN LEFT. DR TORREZ INFORMED, PLACED ON 5 LEAD
[2019-03-10] MEDS ORDERED: CefTRIAXone 2gm/D5W 50ml 50 ML IV ONE (00:20)
[2019-03-10] MEDS ORDERED: iohexol 350MG/ML 100ml bottle IV ONE (00:56)
[2019-03-10] MEDS ORDERED: heparin 10,000 units/1 ML INJ IV PRN ×2 (02:00→06:00)
[2019-03-10] MEDS ORDERED: heparin 10,000 units/1 ML INJ IV ONE (02:00)
[2019-03-10] MEDS: heparin 25,000 UNIT/250ml bag 250 ML IV SCH ×4 (02:47→18:44)
[2019-03-10] MEDS ORDERED: FURO-150 PO (03:03)
[2019-03-10] MEDS ORDERED: potassium Cl 20 mEq SR tablet PO PRN ×2 (03:15)
[2019-03-10] MEDS ORDERED: magnesium hydroxide 30ml (MOM) UD suspension PO PRN (03:15)
[2019-03-10] MEDS ORDERED: HYDROcodone/acetaminophen 5mg/325mg tablet PO PRN (03:15)
[2019-03-10] MEDS ORDERED: acetaminophen 325mg tablet PO PRN (03:15)
[2019-03-10] MEDS ORDERED: mag hydrox/Alum hydrox/simeth 30ml oral suspension PO PRN (03:15)
[2019-03-10] MEDS ORDERED: magnesium Cl slow-release 64mg tablet PO PRN (03:15)
[2019-03-10] MEDS ORDERED: ondansetron/PF 4mg/2ml inj IV PRN (03:15)
[2019-03-10] MEDS: mineral oil/petrolatum, white cream 113gm jar TP SCH ×2 (08:00→20:07)
[2019-03-10] MEDS: fluticasone nasal spray 16GM bottle NS SCH (08:00)
[2019-03-10] MEDS ORDERED: atenolol 50mg tablet PO SCH (08:00)
[2019-03-10] MEDS: K and/or MAG REPLACEMENT MC SCH ×2 (08:00→20:00)
[2019-03-10] MEDS ORDERED: isosorbide mononitrate 30mg tab.SR.24H PO SCH (08:00)
[2019-03-10] MEDS ORDERED: albuterol 2.5 MG/3 ML nebule NEB PRN (08:00)
[2019-03-10] MEDS: montelukast 10mg tablet PO SCH (08:48)
[2019-03-10] MEDS: pantoprazole 40mg Tablet.DR PO SCH (08:48)
[2019-03-10] MEDS: aspirin 81mg tablet.DR PO SCH (08:48)
[2019-03-10] MEDS: ipratropium/albuterol 3ml nebule NEB SCH ×2 (09:00→15:00)
--- NOTE | 2019-03-10 09:50 | NUR ---
Received report on patient. Awaiting arrival to [facility] 1891[facility].
--- NOTE | 2019-03-10 10:03 | NUR ---
Patient arrived to PCU 3021O. Transferred from [facility] to hospital bed. Patient oriented to room and to call light. Vital signs: HR: 88, RR: 14, 02: 95% on room air, BP 89/44. Pain 5/10. Telemetry monitoring initiated. Heparin gtt infusing. All immediate needs met at this time.
[2019-03-10 11:00] VITALS: BP 102/49
--- NOTE | 2019-03-10 11:56 | NUR ---
Critical lab: PTT 139. Heparin gtt stopped for 2 hours. Resume at 1400.
--- NOTE | 2019-03-10 12:12 | NUR ---
Per Dr. Paulino: Discontinue imdur 30 mg PO and tenormin 50 mg PO.
[2019-03-10] MEDS: HYDROcodone/acetaminophen 10/325mg tab PO PRN (12:20)
[2019-03-10 15:00] VITALS: BP 99/52
[2019-03-10 18:30] VITALS: BP 91/57
--- NOTE | 2019-03-10 18:39 | NUR ---
Problems reprioritized. Patient report given, questions answered & plan of care reviewed with Martha MENDEZ. Patient stable at transfer of care.
--- NOTE | 2019-03-10 18:47 | NUR ---
Patient in room PCU 3027. I have received report from Gisela MENDEZ and had the opportunity to ask questions and assume patient care.
[2019-03-10] MEDS: atorvastatin 10mg tablet PO SCH (20:07)
[2019-03-10 22:30] VITALS: BP 122/74
--- NOTE | 2019-03-10 23:34 | NUR ---
DVT PTT 114, Heparin GTT stopped, notified, will continue to monitor pt
[2019-03-11 01:59] LABS: ALBUMIN 2.8 G/DL (3.4-5.0); ANION GAP 7 (8-16); BLOOD UREA NITROGEN 29 MG/DL (7-18); BUN/CREATININE RATIO 23.4 (6.6-38.0); CHLORIDE 107 MMOL/L (99-107); CREATININE 1.24 MG/DL (0.40-0.90); GLUCOSE 110 MG/DL (70-104); MAGNESIUM 1.8 MG/DL (1.5-2.4); SODIUM 139 MMOL/L (135-145); TOTAL CARBON DIOXIDE 25.2 MMOL/L (24-32); eGFR 44 ML/MIN
[2019-03-11 02:00] LABS: BASOPHILS % (AUTO) 0.4 % (0-1); EOSINOPHILS % (AUTO) 0.3 % (0-6); HEMATOCRIT 38.7 % (35.0-45.0); HEMOGLOBIN 12.7 g/dl (12.0-16.0); LYMPHOCYTES # (AUTO) 3.4 X10'3 (1.1-4.8); LYMPHOCYTES % (AUTO) 37.6 % (21-51); MEAN CORPUSCULAR HEMOGLOBIN 25.9 PG (27.0-31.0); MEAN CORPUSCULAR HGB CONC 32.8 g/dL (33.0-36.5); MEAN CORPUSCULAR VOLUME 79.2 FL (78-98); MEAN PLATELET VOLUME 8.6 FL (7.4-10.4); MONOCYTES # (AUTO) 0.9 X10'3 (0-0.9); MONOCYTES % (AUTO) 9.6 % (2-12); NEUTROPHILS # (AUTO) 4.7 X10'3 (1.8-7.7); NEUTROPHILS % (AUTO) 52.1 % (42-75); PLATELET COUNT 180 X10'3 (140-440); RED BLOOD COUNT 4.89 X10'6 (4.20-5.60); RED CELL DISTRIBUTION WIDTH 15.2 % (11.5-14.5); WHITE BLOOD COUNT 9.1 X10'3 (4.5-11.0)
[2019-03-11] MEDS: ipratropium/albuterol 3ml nebule NEB SCH ×4 (02:25→21:16)
[2019-03-11 02:30] VITALS: BP 107/58
--- NOTE | 2019-03-11 02:30 | NUR ---
DVT PTT 38, 4500 heparin bolus and Heparin GTT increased to 16mls/hr, will continue to monitor pt
--- NOTE | 2019-03-11 06:31 | NUR ---
Patient in room PCU 3027. I have received report from Martha MENDEZ and had the opportunity to ask questions and assume patient care, patient is stable and sleeping at transfer.
--- NOTE | 2019-03-11 06:32 | NUR ---
Patient in room PCU 3027. I have received report from Martha MENDEZ and had the opportunity to ask questions and assume patient care. Patient asleep in bed and resting comfortably. Heparin gtt infusing.
--- NOTE | 2019-03-11 06:34 | NUR ---
Problems reprioritized. Patient report given, questions answered & plan of care reviewed with Gisela MENDEZ.
[2019-03-11 07:00] VITALS: BP 115/55
[2019-03-11] MEDS: K and/or MAG REPLACEMENT MC SCH ×2 (08:00→19:45)
[2019-03-11] MEDS: montelukast 10mg tablet PO SCH (08:47)
[2019-03-11] MEDS: pantoprazole 40mg Tablet.DR PO SCH (08:47)
[2019-03-11] MEDS: aspirin 81mg tablet.DR PO SCH (08:47)
[2019-03-11] MEDS: fluticasone nasal spray 16GM bottle NS SCH (08:48)
[2019-03-11] MEDS: mineral oil/petrolatum, white cream 113gm jar TP SCH ×2 (08:48→19:56)
[2019-03-11 11:00] VITALS: BP 128/47
--- NOTE | 2019-03-11 13:25 | NUR ---
Paged Dr. Paulino RE: [id number], Tina Gallego. FYI Critical PTT 139, heparin stopped 2hr per protocol. Deandre PCU [id number]
[2019-03-11 15:00] VITALS: BP 124/76
[2019-03-11] MEDS: heparin 25,000 UNIT/250ml bag 250 ML IV SCH (15:26)
[2019-03-11 18:00] VITALS: BP 130/77
--- NOTE | 2019-03-11 18:39 | NUR ---
Problems reprioritized. Patient report given, questions answered & plan of care reviewed with Latisha MENDEZ. Patient stable at transfer of care.
--- NOTE | 2019-03-11 18:43 | NUR ---
[place] documentation: I have reviewed and agree with all interventions, assessments performed and documented by ANDREA Carrera. [place] Medication Administration: For this medication-pass time frame, all medication were reviewed, dispensed, administered and documented per hospital policy by ANDREA Carrera.
[2019-03-11] MEDS: apixaban 5mg tablet PO SCH (19:56)
[2019-03-11] MEDS: atorvastatin 10mg tablet PO SCH (19:56)
[2019-03-11] MEDS: clobetasol propionate ointment 15gm TP SCH (19:56)
[2019-03-11] MEDS ORDERED: guaiFENesin/DM 10ml UD oral syrup PO PRN (20:30)
--- NOTE | 2019-03-11 21:03 | NUR ---
PT. CRYING IN ROOM. STATES SHE HAD A CELL PHONE THAT IS NOT IN HER BELONGINGS. PT. HAS AN OLD PHONE BUT STATES SHE HAD A NEW [employer] PHONE.
--- NOTE | 2019-03-11 21:10 | NUR ---
Patient in room U 3027. I have received report from ANDREA Higgins and had the opportunity to ask questions and assume patient care. Addendum: 03/11/19 at 2112 by Latisha Carroll RN Amended: Links added.
[2019-03-11 22:00] VITALS: BP 115/74
[2019-03-11] MEDS: HYDROcodone/acetaminophen 10/325mg tab PO PRN (23:11)
[2019-03-12 02:00] VITALS: BP 153/87
[2019-03-12 04:50] LABS: BASOPHILS % (AUTO) 0.4 % (0-1); EOSINOPHILS % (AUTO) 0.4 % (0-6); HEMATOCRIT 40.2 % (35.0-45.0); HEMOGLOBIN 13.1 g/dl (12.0-16.0); LYMPHOCYTES # (AUTO) 1.8 X10'3 (1.1-4.8); LYMPHOCYTES % (AUTO) 36.8 % (21-51); MEAN CORPUSCULAR HEMOGLOBIN 25.7 PG (27.0-31.0); MEAN CORPUSCULAR HGB CONC 32.7 g/dL (33.0-36.5); MEAN CORPUSCULAR VOLUME 78.7 FL (78-98); MEAN PLATELET VOLUME 8.6 FL (7.4-10.4); MONOCYTES # (AUTO) 0.6 X10'3 (0-0.9); MONOCYTES % (AUTO) 11.9 % (2-12); NEUTROPHILS # (AUTO) 2.5 X10'3 (1.8-7.7); NEUTROPHILS % (AUTO) 50.5 % (42-75); PLATELET COUNT 180 X10'3 (140-440); RED BLOOD COUNT 5.11 X10'6 (4.20-5.60); RED CELL DISTRIBUTION WIDTH 14.7 % (11.5-14.5)
[2019-03-12 04:57] LABS: ANION GAP 9 (8-16); BLOOD UREA NITROGEN 18 MG/DL (7-18); BUN/CREATININE RATIO 20.2 (6.6-38.0); CALCIUM 8.1 MG/DL (8.5-10.1); CHLORIDE 106 MMOL/L (99-107); CREATININE 0.89 MG/DL (0.40-0.90); GLUCOSE 117 MG/DL (70-104); MAGNESIUM 1.9 MG/DL (1.5-2.4); POTASSIUM 3.9 MMOL/L (3.5-5.1); SODIUM 141 MMOL/L (135-145); TOTAL CARBON DIOXIDE 26.5 MMOL/L (24-32); eGFR 64 ML/MIN
[2019-03-12 06:00] VITALS: BP 146/84
--- NOTE | 2019-03-12 06:33 | NUR ---
Problems reprioritized. Patient report given, questions answered & plan of care reviewed with ANDREA Chow. Addendum: 03/12/19 at 0633 by Latisha Carroll RN Amended: Links added.
--- NOTE | 2019-03-12 06:36 | NUR ---
Patient in room PCU 3027. I have received report from ANDREA Good and had the opportunity to ask questions and assume patient care. Patient is currently resting in bed, bed locked and low, call light in reach, no acute distress, will continue to monitor.
[2019-03-12] MEDS: K and/or MAG REPLACEMENT MC SCH (08:00)
[2019-03-12] MEDS: montelukast 10mg tablet PO SCH (08:13)
[2019-03-12] MEDS: fluticasone nasal spray 16GM bottle NS SCH (08:13)
[2019-03-12] MEDS: aspirin 81mg tablet.DR PO SCH (08:14)
[2019-03-12] MEDS: apixaban 5mg tablet PO SCH (08:14)
[2019-03-12] MEDS: mineral oil/petrolatum, white cream 113gm jar TP SCH (08:14)
[2019-03-12] MEDS: pantoprazole 40mg Tablet.DR PO SCH (08:14)
[2019-03-12] MEDS: clobetasol propionate ointment 15gm TP SCH (08:14)
[2019-03-12] MEDS: ipratropium/albuterol 3ml nebule NEB SCH ×2 (08:37→13:27)
[2019-03-12 11:00] VITALS: BP 137/87
[2019-03-12] MEDS ORDERED: APIX5TAB3 PO (11:57)
[2019-03-12 15:00] VITALS: BP 146/75
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
== END 2019-03-12 16:10 | disposition home health service (06) | DRG 134 ==
LOC: ER 19:40 → ED HOLD 03-10 03:18 → PCU 3S 03-10 10:03
PROVIDERS: ADMIT Internal Medicine; ATTEND Hospitalist
DX: I26.99 Other pulmonary embolism without acute cor pulmonale (principal); C95.10 Chronic leukemia of unspecified cell type not having achieved remission; I27.20 Pulmonary hypertension, unspecified; I50.9 Heart failure, unspecified; I11.0 Hypertensive heart disease with heart failure; L40.9 Psoriasis, unspecified; F15.90 Other stimulant use, unspecified, uncomplicated; E78.00 Pure hypercholesterolemia, unspecified; F17.200 Nicotine dependence, unspecified, uncomplicated; I25.10 Atherosclerotic heart disease of native coronary artery without angina pectoris; R62.7 Adult failure to thrive; K21.9 Gastro-esophageal reflux disease without esophagitis; M19.90 Unspecified osteoarthritis, unspecified site; Z87.11 Personal history of peptic ulcer disease; Z90.710 Acquired absence of both cervix and uterus
CPT/HCPCS: 36415; 71275; 80048; 80053; 81001; 83690; 83735; 85025; 85379; 85730; 86038; 86147; 87502; 87503; 93005; 93306; 94640; 94760; 97116; 97161; 97530; G0378; J0696; J1644; J2405; Q9967